=== PATIENT | male | born 1945 | race Hispanic/Latino ===

== ENCOUNTER 2016-07-02 20:01 | Emergency (ER) | payer MEDICARE, OTHER ==
[2016-07-02] MEDS ORDERED: IPRATROPIUM/ALBUTEROL 3 ML VIAL NEB ONE (20:20)
[2016-07-02] MEDS ORDERED: MONTELUKAST SODIUM 10 MG TAB PO ONE (20:21)
--- NOTE | 2016-07-02 21:20 | RAD ---
EXAM DESCRIPTION: XR CHEST 2 VIEWS CLINICAL HISTORY: sob, flu COMPARISON: None FINDINGS: Cardiac silhouette is within normal limits. Decreased lung volumes could be secondary to underinflation. There is mild peribronchial cuffing. There is no focal parenchymal or pleural disease. There is no acute osseous process visualized. IMPRESSION: Mild peribronchial cuffing could be secondary to reactive airway disease/ bronchitis versus viral/ atypical infection. Decreased lung volumes could be secondary to underinflation. Electronically signed by: Yusef Smith 07/02/2016 21:18
[2016-07-02] MEDS ORDERED: predniSONE 20 MG TAB PO ONE (21:33)
[2016-07-02] MEDS ORDERED: ACETAMINOPHEN 325 MG TAB PO ONE (21:35)
[2016-07-02] MEDS ORDERED: IBUPROFEN 200 MG TAB PO ONE (21:36)
--- NOTE | 2016-07-02 21:36 | ED.PDOC ---
History of Present Illness - General Chief Complaint: Respiratory Problem Stated Complaint: cough and wheezing Time Seen by Provider: 07/02/16 20:20 Source: patient, family Exam Limitations: no limitations - History of Present Illness Initial Comments: The patient is a 71-year-old male presenting to the emergency room secondary to mild shortness of breath and cough. He has had asthma for quite some time and does take breathing treatments. He is also had some runny nose and a mild sore throat. He tested positive for flu today and has been written for Tamiflu which is currently being picked up. He was sent here by his primary care for a chest x-ray. No fevers. No sent. Near-syncope. He does have a history of high blood sugars. No chest pain. Symptoms have present for a couple of days. He has been doing his breathing treatments every 4 hours or so. Severity: moderate Improving Factors: nothing Worsening Factors: nothing Associated Symptoms: cough, malaise, shortness of breath Allergies/Adverse Reactions: Allergies NO KNOWN ALLERGY Allergy (Verified 07/02/16 20:28) Home Medications: Ambulatory Orders Montelukast Sodium [Singulair] 10 mg PO DAILY #14 tab 07/02/16 Review of Systems - Review of Systems Constitutional: States: malaise EENTM: States: nose congestion, throat pain - mild Respiratory: States: cough, short of breath, wheezing - mild Cardiology: States: no symptoms reported Gastrointestinal/Abdominal: States: no symptoms reported Genitourinary: States: no symptoms reported Musculoskeletal: States: no symptoms reported Skin: States: no symptoms reported Neurological: States: no symptoms reported All other Systems: No Change from Baseline Past Medical History (General) - Patient Medical History Hx Seizures: No Hx Stroke: No Hx Dementia: No Hx Asthma: Yes Hx of COPD: No Hx Cardiac Disorders: No Hx Congestive Heart Failure: No Hx Pacemaker: No Hx Hypertension: No Hx Thyroid Disease: No Hx Diabetes: Yes Hx Gastroesophageal Reflux: Yes Hx Renal Disease: No Hx Cancer: No Hx of HIV: No Hx Hepatitis C: No Hx MRSA: No Surgical History: other - Vaccination History Hx Tetanus, Diphtheria Vaccination: No Hx Influenza Vaccination: No Hx Pneumococcal Vaccination: No - Social History Hx Tobacco Use: No Hx Chewing Tobacco Use: No Hx Alcohol Use: No Hx Substance Use Treatment: No Feels Threatened In Home Enviroment: No Feels Threatened In a Relationship: No Family Medical History - Family History Mother Family History: Unknown Physical Exam - Physical Exam General Appearance: Alert, Comfortable, No apparent distress Eye Exam: bilateral normal Ears, Nose, Throat: normal pharynx, nasal congestion Neck: full range of motion, supple Respiratory: chest non-tender, no respiratory distress, no accessory muscle use , rhonchi, wheezing Cardiovascular/Chest: normal peripheral pulses, regular rate, rhythm, no edema Peripheral Pulses: radial,right: 2+, radial,left: 2+ Gastrointestinal/Abdominal: non tender, soft, no organomegaly Rectal Exam: deferred Back Exam: normal inspection, no CVA tenderness Extremity: normal range of motion, non-tender, normal inspection, no pedal edema , normal capillary refill Neurologic: alert, normal mood/affect, oriented x 3 Skin Exam: normal color Comments: Vital Signs - 24 hr 07/02/16 07/02/16 20:04 20:35 Temperature 101.8 F H Pulse Rate 103 H Pulse Rate [ 99 H left] Respiratory 24 20 Rate Blood Pressure 186/82 [right] O2 Sat by Pulse 94 L 95 Oximetry repeat systolic blood pressure is down below 140 Progress - Progress Progress: 07/02/16 21:41 the patient is a 71-year-old male presented to the emergency room upon recommendation by primary care doctor to have a chest x-ray. His chest x-ray shows no evidence of fluid overload or pneumonia. He does have influenza that was determined by his primary care doctor's office. He needs to take his Tamiflu for that. He was given 1 dose of oral prednisone here only due to his diabetes. He was also given a dose of ibuprofen, Tylenol and Singulair. He will be written for Singulair for the next 2 weeks to help with his asthma. He is to continue his breathing treatments every 3 hours until he is improving. Ibuprofen and Tylenol can be used to help reduce symptoms of the flu otherwise. he is not hypoxic and not in respiratory distress. He needs to keep himself well hydrated. He needs to follow back up with his primary care doctor before the weekend for reevaluation. He is return to the emergency room for any worsening. - Results/Orders Results/Orders: chest x-ray is consistent with asthma. Departure - Departure Clinical Impression: Influenza Asthma with exacerbation Qualifiers: Asthma severity: moderate persistent Qualifier Code: (J45.41) Moderate persistent asthma with (acute) exacerbation Disposition: Discharge to Home or Self Care Condition: Fair Departure Forms: ED Discharge - Pt. Copy, Patient Portal Self Enrollment Instructions: DI for Asthma -- Adult, Influenza Diet: diabetic diet Activity: increase activity as tolerated Referrals: Kenn Mills MD [Primary Care Provider] - 1-2 Days Prescriptions: Montelukast Sodium [Singulair] 10 mg PO DAILY #14 tab Home Medications: Ambulatory Orders Montelukast Sodium [Singulair] 10 mg PO DAILY #14 tab 07/02/16 Additional Instructions: the patient is a 71-year-old male presented to the emergency room upon recommendation by primary care doctor to have a chest x-ray. His chest x-ray shows no evidence of fluid overload or pneumonia. He does have influenza that was determined by his primary care doctor's office. He needs to take his Tamiflu for that. He was given 1 dose of oral prednisone here only due to his diabetes. He was also given a dose of ibuprofen, Tylenol and Singulair. He will be written for Singulair for the next 2 weeks to help with his asthma. He is to continue his breathing treatments every 3 hours until he is improving. Ibuprofen and Tylenol can be used to help reduce symptoms of the flu otherwise. he is not hypoxic and not in respiratory distress. He needs to keep himself well hydrated. He needs to follow back up with his primary care doctor before the weekend for reevaluation. He is return to the emergency room for any worsening.
[2016-07-02 22:20] VITALS: BP 106/74; TEMP 99.8; O2SAT 94
== END 2016-07-02 22:21 | disposition home or self-care (01) ==
LOC: ER 20:01
DX: J11.1 Influenza due to unidentified influenza virus with other respiratory manifestations (principal); J45.41 Moderate persistent asthma with (acute) exacerbation; E11.9 Type 2 diabetes mellitus without complications; K21.9 Gastro-esophageal reflux disease without esophagitis
CPT/HCPCS: 71020; 94640; J7512; J7620

== ENCOUNTER → 2016-12-02 | Outpatient (CLI) | payer MEDICARE, OTHER | END | disposition home or self-care (01) | LOC: GMAH 10:15 | PROVIDERS: ATTEND Family Medicine | DX: Z12.5 Encounter for screening for malignant neoplasm of prostate (principal) ==